=== PATIENT | female | born 1950 | race Caucasian/White ===

== ENCOUNTER 2017-09-26 01:01 | Inpatient (IN) | payer MEDICARE, OTHER ==
[~2017-09-26] VITALS: Ht 170.2 cm; Wt 84.6 kg
[2017-09-26] MEDS ORDERED: ALBUTEROL SULF 2.5 MG/0.5ML(0.5%) NEB SOLN NEB ONE (01:15)
[2017-09-26] MEDS ORDERED: IPRATROPIUM BROM 0.5 MG/2.5ML INH SOL NEB ONE (01:15)
[2017-09-26 01:59] LABS: Basophils # (auto) 0.1 uL; Basophils % (auto) 1.2 % (0.0-2.0); Eosinophils # (auto) 0.5 uL; Eosinophils % (auto) 3.6 % (0.0-7.0); Hematocrit 37.9 % (36.0-46.0); Hemoglobin 12.7 g/dL (12.2-16.2); Mean Corpuscular Hemoglobin 28.5 pg (28.0-32.0); Mean Corpuscular Hgb Conc. 33.6 g/dL (32.0-36.0); Mean Corpuscular Volume 84.9 fL (80.0-100.0); Monocytes # (auto) 0.6 uL; Monocytes % (auto) 5.1 % (0.0-12.0); Neutrophils # (auto) 8.4 uL; Neutrophils % (auto) 66.1 % (37.0-80.0); Platelet Count (auto) 276 10^3/uL (140-450); Red Blood Cells 4.46 10^6/uL (4.0-5.20); Red Cell Distribution Width 15.7 % (11.8-14.3); White Blood Cell 12.7 10^3/uL (4.4-10.8)
[2017-09-26 02:15] LABS: Alanine Aminotransferase 19 U/L (13-56); Albumin 3.2 g/dL (3.4-5.0); Anion Gap 8 (5-15); Aspartate Aminotransferase 20 U/L (15-37); BUN/Creatinine Ratio 18.6; Blood Urea Nitrogen 13 mg/dL (7-18); Calcium 8.8 mg/dL (8.5-10.1); Carbon Dioxide 25 mmol/L (21-32); Chloride 105 mmol/L (98-107); GFR African American 108 mL/min; GFR Non-African American 89 mL/min; Glucose 113 mg/dL (74-106); Magnesium 1.9 mg/dL (1.6-2.6); Potassium 3.5 mmol/L (3.5-5.1); Sodium 138 mmol/L (136-145)
[2017-09-26 02:23] LABS: Alkaline Phosphatase 117 U/L (45-117); Bilirubin, Total 0.4 mg/dL (0.2-1.0); Total Protein 6.7 g/dL (6.4-8.2)
[2017-09-26 03:02] LABS: INR 1.3 (0.9-1.15); Partial Thromboplastin Time 35.5 sec (22.64-33.71); Prothrombin Time 14.2 sec (9.37-12.3)
[2017-09-26] MEDS ORDERED: methylPREDNISolone SOD SUCC 125 MG/2 ML VL ONE (03:03)
[2017-09-26] MEDS ORDERED: HYDROcodone-ACET 10/325MG TAB ONE (03:03)
[2017-09-26] MEDS ORDERED: HYDROcodone-ACET 10/325MG TAB PO ONE (03:15)
[2017-09-26] MEDS ORDERED: methylPREDNISolone SOD SUCC 125 MG/2 ML VL IV ONE (03:15)
[2017-09-26] MEDS ORDERED: NITROGLYCERIN 0.4 MG SL TAB SL PRN (06:30)
[2017-09-26] MEDS ORDERED: MORPHINE SULFATE 4 MG/ML SYR/VIAL IV PRN (06:30)
[2017-09-26] MEDS ORDERED: IPRATROPIUM BROM 0.5 MG/2.5ML INH SOL NEB PRN (06:30)
[2017-09-26] MEDS ORDERED: ALBUTEROL SULF 2.5 MG/0.5ML(0.5%) NEB SOLN NEB PRN (06:30)
[2017-09-26] MEDS ORDERED: TEMAZEPAM 15 MG CAP PO PRN (06:30)
[2017-09-26] MEDS ORDERED: ACETAMINOPHEN 325 MG TAB PO PRN (06:30)
[2017-09-26] MEDS ORDERED: ONDANSETRON HCL 4 MG/2 ML VIAL IV PRN (06:30)
[2017-09-26] MEDS ORDERED: cloNIDine HCL 0.1 MG TAB PO PRN (07:15)
[2017-09-26] MEDS: HYDROcodone-ACET 5/325MG TAB PO PRN ×4 (08:15→21:49)
[2017-09-26] MEDS ORDERED: cefTRIAXone 1GM/10ml IVPUSH 10 ML IV SCH (09:00)
[2017-09-26 09:46] VITALS: BP 141/83
[2017-09-26] MEDS: FAMOTIDINE 20 MG TAB PO SCH ×2 (09:53→21:48)
[2017-09-26] MEDS: METOPROLOL TARTRATE 25 MG TAB PO SCH ×2 (09:53→21:48)
[2017-09-26] MEDS ORDERED: ENOXAPARIN SOD 40 MG/0.4 ML SYRINGE SC SCH (10:00)
[2017-09-26] MEDS ORDERED: methylPREDNISolone SOD SUCC 125 MG/2 ML VL IV SCH (10:00)
[2017-09-26 10:51] VITALS: BP 119/77
[2017-09-26] MEDS: ALBUTEROL SULF 2.5 MG/0.5ML(0.5%) NEB SOLN NEB SCH ×2 (12:24→20:02)
[2017-09-26] MEDS: IPRATROPIUM BROM 0.5 MG/2.5ML INH SOL NEB SCH ×2 (12:24→20:02)
[2017-09-26] MEDS ORDERED: guaiFENesin 200 MG/10 ML UD PO PRN (14:30)
[2017-09-26 14:45] VITALS: BP 139/74
[2017-09-26 17:00] VITALS: BP 136/79
[2017-09-26] MEDS ORDERED: WARFARIN SODIUM 2.5 MG TAB PO ONE (17:00)
[2017-09-26] MEDS ORDERED: SIMV-13 PO (17:23)
[2017-09-26] MEDS ORDERED: IBU600T PO (17:23)
[2017-09-26] MEDS ORDERED: VENL75TA PO (17:23)
[2017-09-26] MEDS ORDERED: CLON1TAB3 PO (17:23)
[2017-09-26] MEDS ORDERED: FURO40TA4 PO (17:23)
[2017-09-26] MEDS ORDERED: MIRT15TA3 PO (17:23)
[2017-09-26] MEDS ORDERED: PROP60CA8 PO (17:23)
[2017-09-26] MEDS ORDERED: WARF5TAB71 PO (17:23)
[2017-09-26] MEDS ORDERED: METF-370 PO (17:23)
[2017-09-26] MEDS ORDERED: OMEP-263 PO (17:23)
[2017-09-26] MEDS ORDERED: GLIM4TAB42 PO (17:23)
[2017-09-26] MEDS: DOXYCYCLINE 100 MG TAB/CAP PO SCH ×2 (17:46→21:48)
[2017-09-26 19:12] LABS: Urine Bacteria NONE SEEN /hpf (None Seen); Urine Blood Negative /uL (Negative); Urine Specific Gravity 1.027 (1.001-1.035); Urine WBC 2 /hpf (0 - 5)
[2017-09-26] MEDS: BUDESONIDE (INHALATION) 0.5 MG/2 ML NEB NEB SCH (20:02)
[2017-09-26 22:00] VITALS: BP 128/73
[2017-09-27] MEDS: HYDROcodone-ACET 5/325MG TAB PO PRN ×2 (03:48→08:08)
[2017-09-27 05:00] VITALS: BP 105/51
[2017-09-27 06:18] LABS: Basophils # (auto) 0 uL; Basophils % (auto) 0.1 % (0.0-2.0); Eosinophils # (auto) 0 uL; Hematocrit 33.5 % (36.0-46.0); Hemoglobin 11.3 g/dL (12.2-16.2); Lymphocytes # (auto) 1.4 uL; Lymphocytes % (auto) 14.9 % (10.0-50.0); Mean Corpuscular Hemoglobin 28.7 pg (28.0-32.0); Mean Corpuscular Hgb Conc. 33.6 g/dL (32.0-36.0); Mean Corpuscular Volume 85.5 fL (80.0-100.0); Monocytes # (auto) 0.5 uL; Monocytes % (auto) 5.1 % (0.0-12.0); Neutrophils # (auto) 7.7 uL; Neutrophils % (auto) 79.9 % (37.0-80.0); Platelet Count (auto) 240 10^3/uL (140-450); Red Blood Cells 3.92 10^6/uL (4.0-5.20); Red Cell Distribution Width 15.9 % (11.8-14.3); White Blood Cell 9.6 10^3/uL (4.4-10.8)
[2017-09-27 06:26] LABS: INR 2.26 (0.9-1.15); Partial Thromboplastin Time 39.6 sec (22.64-33.71); Prothrombin Time 24.8 sec (9.37-12.3)
[2017-09-27 06:34] LABS: BUN/Creatinine Ratio 24.4; Bilirubin, Total 0.2 mg/dL (0.2-1.0); Calcium 8.9 mg/dL (8.5-10.1); Potassium 4.2 mmol/L (3.5-5.1); Total Protein 6.4 g/dL (6.4-8.2)
[2017-09-27] MEDS: IPRATROPIUM BROM 0.5 MG/2.5ML INH SOL NEB SCH ×2 (06:46→11:14)
[2017-09-27] MEDS: ALBUTEROL SULF 2.5 MG/0.5ML(0.5%) NEB SOLN NEB SCH ×2 (06:46→11:15)
[2017-09-27 09:00] VITALS: BP 113/70
[2017-09-27] MEDS ORDERED: predniSONE 20 MG TAB PO SCH (10:00)
[2017-09-27] MEDS: METOPROLOL TARTRATE 25 MG TAB PO SCH (10:58)
[2017-09-27] MEDS: DOXYCYCLINE 100 MG TAB/CAP PO SCH (10:59)
[2017-09-27] MEDS: FAMOTIDINE 20 MG TAB PO SCH (10:59)
[2017-09-27] MEDS: BUDESONIDE (INHALATION) 0.5 MG/2 ML NEB NEB SCH (11:15)
[2017-09-27 13:00] VITALS: BP 119/63
[2017-09-27] MEDS ORDERED: NICOTINE 21MG/24 HR TOPICAL PATCH TD ONE (13:00)
[2017-09-27] MEDS ORDERED: ALPRAZolam 0.25 MG TAB PO PRN (13:00)
[2017-09-27] MEDS ORDERED: KETOROLAC TROMETH 30 MG/ML 1ML VIAL IV PRN (13:00)
[2017-09-27] MEDS ORDERED: DEXTROSE (50%) 50ML SYRG IV PRN (13:15)
[2017-09-27 15:52] VITALS: BP 119/63
[2017-09-27] MEDS ORDERED: ACCU-CHEK COMFORT CURVE STRIP VI SCH (17:00)
[2017-09-27] MEDS ORDERED: WARFARIN SODIUM 1 MG TAB PO ONE (17:00)
[2017-09-27] MEDS ORDERED: InsuLIN REG 1unit/0.01ml Soln (100units/ml) SC SCH (17:00)
[2017-09-28] MEDS ORDERED: NICOTINE 21MG/24 HR TOPICAL PATCH TD SCH (10:00)
== END 2017-09-27 16:40 | disposition home or self-care (01) | DRG 189 ==
LOC: ER 01:01 → TELE 01:02 → TELE-WESTW 13:58
PROVIDERS: ADMIT Nurse Practitioner; ATTEND Internal Medicine
DX: J96.01 Acute respiratory failure with hypoxia (principal); E44.0 Moderate protein-calorie malnutrition; D68.69 Other thrombophilia; I50.32 Chronic diastolic (congestive) heart failure; I11.0 Hypertensive heart disease with heart failure; I48.2 Chronic atrial fibrillation; J44.0 Chronic obstructive pulmonary disease with (acute) lower respiratory infection; E11.9 Type 2 diabetes mellitus without complications; E66.9 Obesity, unspecified; J44.1 Chronic obstructive pulmonary disease with (acute) exacerbation; F17.210 Nicotine dependence, cigarettes, uncomplicated; Z80.8 Family history of malignant neoplasm of other organs or systems; J20.9 Acute bronchitis, unspecified; Z83.3 Family history of diabetes mellitus; Z79.899 Other long term (current) drug therapy; Z68.29 Body mass index [BMI] 29.0-29.9, adult
CPT/HCPCS: 36415; 71045; 80053; 81001; 82962; 83036; 83735; 84484; 85025; 85610; 85730; 93005; 94640; 96372; 96374; 96375; J1815; J1885